=== PATIENT | female | born 1990 | race Caucasian/White ===

== ENCOUNTER 2017-05-04 11:04 | Emergency (ER) | payer OTHER, SELFPAY ==
[2017-05-04 11:08] VITALS: BP 137/77; PULSE 58; RESP 16; TEMP 98.7; O2SAT 99
[2017-05-04 11:09] VITALS: BMI 32.1
--- NOTE | 2017-05-04 11:31 | ED PDOC ---
HPI: CCC, URI, Sore Throat Time Seen by Provider: 05/04/17 11:17 Chief Complaint (Nursing): ENT Problem Chief Complaint (Provider): ear pain History Per: Patient History/Exam Limitations: no limitations Associated Symptoms: Cough. denies: Fever, Chills, Sore Throat, Sputum, Neck Pain, Sinus Drainage, Myalgias, Nasal Congestion, Nausea, Vomiting, Diarrhea Additional Complaint(s): 26yo F in ED for eval left ear painx 1day-pt states that for 2-3days with congestions, cough, sneezing rhinorrhea. no drainage from ear. admits to muffled sounds to pain. Past Medical History Reviewed: Historical Data, Nursing Documentation, Vital Signs Vital Signs: Last Vital Signs Temp 98.7 F 05/04/17 11:08 Pulse 58 L 05/04/17 11:08 Resp 16 05/04/17 11:08 BP 137/77 05/04/17 11:08 Pulse Ox 99 05/04/17 11:08 - Medical History PMH: No Chronic Diseases - Family History Family History: States: No Known Family Hx - Home Medications Home Medications: Ambulatory Orders Medication Instructions Recorded Pseudoephedrine [Sudafed Tab] 30 mg PO BID #14 tab 05/04/17 - Allergies Allergies/Adverse Reactions: Allergies Allergy/AdvReac Type Severity Reaction Status Date / Time No Known Allergies Allergy Verified 05/04/17 11:11 Review of Systems ROS Statement: Except As Marked, All Systems Reviewed And Found Negative Constitutional: Negative for: Fever, Chills ENT: Positive for: Ear Pain Respiratory: Negative for: Cough, Shortness of Breath Gastrointestinal: Negative for: Nausea, Vomiting, Abdominal Pain Physical Exam - Reviewed Nursing Documentation Reviewed: Yes Vital Signs Reviewed: Yes - Physical Exam Appears: Positive for: Well, Non-toxic, No Acute Distress Skin: Positive for: Normal Color, Warm, DRY Eye Exam: Positive for: Normal appearance, EOMI, PERRL ENT: Positive for: TM Is/Are (left: TM effusion noted, no drainge no canal swelling. no pinna swelling no tragus tenderness. no mastoid tenderness. ) Neck: Positive for: Normal, Painless ROM Cardiovascular/Chest: Positive for: Regular Rate, Rhythm Respiratory: Positive for: CNT, Normal Breath Sounds Gastrointestinal/Abdominal: Positive for: Normal Exam, Bowel Sounds, Soft Back: Positive for: Normal Inspection Extremity: Positive for: Normal ROM Neurologic/Psych: Positive for: Alert, Oriented - ECG O2 Sat by Pulse Oximetry: 99 Medical Decision Making Medical Decision Making: dx: ear effusion tx: psuedeofed advised to use demian pot or simply saline nasal spray. Disposition - Clinical Impression Clinical Impression: Acute effusion of left ear - Patient ED Disposition Is Patient to be Admitted: No Counseled Patient/Family Regarding: Diagnosis, Need For Followup, Rx Given - Disposition [facility]errals: [facility] [Outside] Disposition: Routine/Home Disposition Time: 11:34 Condition: STABLE Prescriptions: Pseudoephedrine [Sudafed Tab] 30 mg PO BID #14 tab Instructions: Otitis Media (ED)
== END 2017-05-04 11:55 | disposition home or self-care (01) ==
LOC: H.ER 11:04
DX: H65.199 Other acute nonsuppurative otitis media, unspecified ear (principal)

== ENCOUNTER 2017-09-17 19:08 | Emergency (ER) | payer OTHER ==
[2017-09-17 19:09] VITALS: BMI 32.1
[2017-09-17 19:42] VITALS: BP 132/81; PULSE 89; RESP 16; TEMP 98.9; O2SAT 100
--- NOTE | 2017-09-17 20:34 | ED PDOC ---
HPI: CCC, URI, Sore Throat Time Seen by Provider: 09/17/17 20:33 Chief Complaint (Nursing): ENT Problem Chief Complaint (Provider): ear pain History Per: Patient Additional Complaint(s): 27-year-old female currently 17 weeks presents to emergency Department with left ear pain for 2 days. Patient denies cough, congestion, fever or chills. Patient denies any abdominal pain or vaginal bleeding at this time. OB: Dr Knutson Past Medical History Reviewed: Historical Data, Nursing Documentation, Vital Signs Vital Signs: Last Vital Signs Temp 98.9 F 09/17/17 19:40 Pulse 89 09/17/17 19:40 Resp 16 09/17/17 19:40 BP 132/81 09/17/17 19:40 Pulse Ox 100 09/17/17 21:11 - Medical History PMH: No Chronic Diseases - Surgical History Surgical History: No Surg Hx - Family History Family History: States: No Known Family Hx - Living Arrangements Living Arrangements: With Family - Social History Current smoker - smoking cessation education provided: No Alcohol: None Drugs: Denies - Home Medications Home Medications: Ambulatory Orders Medication Instructions Recorded Pseudoephedrine [Sudafed Tab] 30 mg PO BID #14 tab 05/04/17 Amoxicillin 875 mg PO BID #14 tab 09/17/17 Neomycin/Polymyxin/Hydrocort 4 drop TOP BID #1 bottle 09/17/17 [Cortisporin Otic Soln] - Allergies Allergies/Adverse Reactions: Allergies Allergy/AdvReac Type Severity Reaction Status Date / Time No Known Allergies Allergy Verified 05/04/17 11:11 Review of Systems ROS Statement: Except As Marked, All Systems Reviewed And Found Negative Constitutional: Negative for: Fever ENT: Positive for: Ear Pain (left) Gastrointestinal: Negative for: Abdominal Pain Genitourinary Female: Negative for: Vaginal Bleeding Physical Exam - Reviewed Nursing Documentation Reviewed: Yes Vital Signs Reviewed: Yes - Physical Exam Appears: Positive for: Well, Non-toxic, No Acute Distress Skin: Negative for: Rash Eye Exam: Positive for: Normal appearance ENT: Positive for: Other (Right ear within normal limits, left ear demonstrates bulging tympanic membrane with edematous and erythematous canal consistent with otitis media and externa) Cardiovascular/Chest: Positive for: Regular Rate, Rhythm Respiratory: Positive for: Normal Breath Sounds Gastrointestinal/Abdominal: Positive for: Other (Gravid nontender abdomen) Extremity: Positive for: Normal ROM Neurologic/Psych: Positive for: Alert, Oriented - ECG O2 Sat by Pulse Oximetry: 100 Pulse Ox Interpretation: Normal Medical Decision Making Medical Decision Making: Impression: otitis media, otitis externa Plan: PO tylenol Rx amoxicillin and cortisporin otic given to patient. Patient instructed to take Tylenol only for pain and to follow-up as needed with primary doctor or OB. Disposition - Clinical Impression Clinical Impression: Otitis media, Otitis externa - Patient ED Disposition Is Patient to be Admitted: No Counseled Patient/Family Regarding: Diagnosis, Need For Followup, Rx Given - Disposition Referrals: Donald Knutson MD [Staff Provider] - Disposition: Routine/Home Disposition Time: 21:09 Condition: STABLE Additional Instructions: [id number] Tylenol for pain as needed. Use prescription meds as directed. Follow-up with OB or primary care doctor as needed. Prescriptions: Amoxicillin 875 mg PO BID #14 tab Neomycin/Polymyxin/Hydrocort [Cortisporin Otic Soln] 4 drop TOP BID #1 bottle Instructions: Ear Infections (Otitis Media), Outer Ear Infection Forms: [facility] ([place]ian)
== END 2017-09-17 21:21 | disposition home or self-care (01) ==
LOC: H.ER 19:08
DX: H60.92 Unspecified otitis externa, left ear (principal); Z33.1 Pregnant state, incidental